=== PATIENT | female | born 1945 | race Caucasian/White ===

== ENCOUNTER → 2016-08-11 | Day surgery (SDC) | payer MEDICARE ==
[~2016-08-11] MED LIST: ALPRAZOLAM0.25 MG PO; BENTYL10 MG PO; CYMBALTA20 M1 PO; EXFORGE 5-320 M1 TAB PO; FLORASTOR250 M1 PO; GABAPENTIN300 M2 PO; HYDROCODON-ACE1 EAC5 PO; L-LYSINE1000 M1 PO; LEXAPRO PO; MOBIC15 MG PO; MULTI-DAY1 TAB PO; MULTIVITAMINS1 EAC3; NORVASC10 MG PO; PRILOSEC PO; SINGULAIR PO; SYMBICORT INH; VESICARE5 MG PO; VIT B-12 PO; VITAMIN C1000 M2 PO
--- NOTE | ~2016-08-11 | OR ---
Unit #: [id number] #: [id number] Patient: SHAUN BRIGHT [id number] [address] [address] [id number] O MR#: [id number] NAME: SHAUN BRIGHT ROOM: Date of Procedure: 08/11/2016 Admission Date: 08/11/2016 Surgeon: Soren Bender M.D. : 1945 Attending Physician: Soren Bender M.D. Primary Care Physician: Manuel Verma M.D. OPERATIVE REPORT JOB NOTE: CC: [facility]. PREOPERATIVE DIAGNOSES 1. Back pain. 2. Radiculopathy. 3. Spinal stenosis. 4. Degenerative disk disease. 5. Spondylolisthesis. POSTOPERATIVE DIAGNOSES 1. Back pain. 2. Radiculopathy. 3. Spinal stenosis. 4. Degenerative disk disease. 5. Spondylolisthesis. PROCEDURE PERFORMED Lumbar epidural steroid injection with fluoroscopic guidance for needle localization. INDICATIONS FOR PROCEDURE The patient is a 70-year-old female with previously mentioned diagnosis. She had a return of back and left greater than right lower extremity pain due to multilevel multifactorial very severe disk and spine disease. She was treated medically with p.r.n. epidural steroid injections. She will not be a surgical candidate. Epidural steroids had given a fairly good improvement. Last injection was completed 4 months ago. She will likely need them incrementally all the time. DESCRIPTION OF PROCEDURE The patient was placed in a seated position. Standard monitors were applied. Sterile prep and drape of lumbar area was performed. The skin then to the right of midline at the L4 level was localized with 1% lidocaine. An 18-gauge [employer] needle was then advanced via right paramedian approach and loss of resistance technique in toward the epidural space. After confirming proper positioning with fluoroscopy and radiographic contrast, 80 mg Depo-Medrol and 6 mL of 0.125% bupivacaine were deposited. The patient tolerated the procedure otherwise well and was discharged to the recovery room in stable condition. Dictated by... Unit #: [id number] #: [id number] Patient: SHAUN BRIGHT Soren Bender M.D. LHP/christian TD: 08/12/2016 00:39 JOB #: [id number] OPERATIVE REPORT Page 1 of 1 X Soren Bender MD X PROCEDURE OPERATIVE NOTE
== END | disposition home or self-care (01) ==
LOC: CCSC 10:58
DX: M51.16 Intervertebral disc disorders with radiculopathy, lumbar region (principal); M43.16 Spondylolisthesis, lumbar region; M48.06 Spinal stenosis, lumbar region
CPT/HCPCS: J1040; J2250

== ENCOUNTER → 2016-09-24 | Day surgery (SDC) | payer MEDICARE ==
--- NOTE | ~2016-09-24 | OR ---
Unit #: [id number] #: [id number] Patient: SHAUN BRIGHT [id number] [address] [place], [place] [address] [id number] O MR#: [id number] NAME: SHAUN BRIGHT ROOM: Date of Procedure: 09/24/2016 Admission Date: 09/24/2016 Surgeon: Soren Bender M.D. : 1945 Attending Physician: Soren Bender M.D. Referring Physician: Soren Bender M.D. Primary Care Physician: Manuel Verma M.D. OPERATIVE REPORT PREOPERATIVE DIAGNOSES 1. Back pain. 2. Radiculopathy. 3. Degenerative disk disease. 4. Lumbar spinal stenosis. 5. Spondylolisthesis. POSTOPERATIVE DIAGNOSES 1. Back pain. 2. Radiculopathy. 3. Degenerative disk disease. 4. Lumbar spinal stenosis. 5. Spondylolisthesis. PROCEDURE PERFORMED Lumbar epidural steroid injection with fluoroscopic guidance for needle localization. INDICATIONS FOR PROCEDURE The patient is a 70-year-old female with severe multilevel multifactorial degenerative disk and spine disease, it is nonsurgical in nature. She has worsened lordoscoliosis as well. The patient has been treated medically with p.r.n. epidural steroid injections which actually quite helpful, last injection was about 6 weeks ago, that was done singly due to the fact she was about to have abdominal surgery that significantly helped to settle her back and leg pain. Typically, she does best with a series of 2 injections. We are going to repeat the second injection at this point based on good partial response, pathology, symptomatology, and treatment options. DESCRIPTION OF PROCEDURE The patient was placed in a seated position. Standard monitors were applied. Sterile prep and drape of the lumbar area was performed. The skin then to the right of midline at the L4-L5 level was localized with 1% lidocaine. An 18-gauge Jinitead needle was then advanced via right paramedian approach and loss of resistance technique in toward the epidural space. The patient did not complain of pain or paresthesia during needle advancement. After confirming proper positioning with fluoroscopy and radiographic contrast, 80 mg Depo-Medrol and 6 mL of 0.125% bupivacaine were deposited. The patient tolerated the procedure otherwise well and was discharged to the recovery room in stable condition. Unit #: [id number] #: [id number] Patient: SHAUN BRIGHT Dictated by... J Luis Cutler/christian TD: 09/25/2016 06:26 JOB #: [id number] OPERATIVE REPORT Page 1 of 1 X Soren Bender MD X PROCEDURE OPERATIVE NOTE
== END | disposition home or self-care (01) ==
LOC: CCSC 08:36
DX: M51.16 Intervertebral disc disorders with radiculopathy, lumbar region (principal); M48.06 Spinal stenosis, lumbar region; M43.10 Spondylolisthesis, site unspecified
CPT/HCPCS: J1040; J2250

== ENCOUNTER → 2016-10-27 | Day surgery (SDC) | payer MEDICARE ==
--- NOTE | ~2016-10-27 | OR ---
Unit #: [id number] #: [id number] Patient: SHAUN BRIGHT [id number] [address] [place], [place] [address] [id number] O MR#: [id number] NAME: SHAUN BRIGHT ROOM: Date of Procedure: 10/27/2016 Admission Date: 10/27/2016 Surgeon: Soren Bender M.D. : 1945 Attending Physician: Soren Bneder M.D. Primary Care Physician: Manuel Verma M.D. OPERATIVE REPORT JOB NOTE: CC: [facility]. PREOPERATIVE DIAGNOSES Back pain, radiculopathy, degenerative disk disease, degenerative spine disease, spinal stenosis. POSTOPERATIVE DIAGNOSES Back pain, radiculopathy, degenerative disk disease, degenerative spine disease, spinal stenosis. PROCEDURE PERFORMED Lumbar epidural steroid injection with fluoroscopic guidance for needle localization. INDICATIONS FOR PROCEDURE The patient is a 71-year-old female with back and left greater than right lower extremity pain. She has multilevel multifactorial significant degenerative disk and spine disease. She has failed to settle with facet injections. She has been treated in the past with epidural steroid. Initially, the steroid resulted in moderately good improvement. The pain returns and plan is to repeat those injections. One was done about 5 weeks ago, did not result in as much improvement she had with last injections. She proceed with a second injection today. If this does not do better for long amount of time, we will look towards symptom complex management base and medications. DESCRIPTION OF PROCEDURE The patient was placed in a seated position. Standard monitors were applied. Sterile prep and drape of the lumbar area was performed. The skin then to the right of midline at the L2 level was localized with 1% lidocaine. An 18-gauge Calixartead needle was then advanced via right paramedian approach and loss of resistance technique in toward the epidural space. After confirming proper positioning with fluoroscopy and radiographic contrast, 80 mg of Depo-Medrol and 6 mL of 0.125% bupivacaine were deposited. The patient tolerated the procedure otherwise well and was discharged to the recovery room in stable condition. Dictated by... Soren Bender M.D. LHP/modl Unit #: [id number] #: [id number] Patient: SHAUN BRIGHT TD: 10/27/2016 11:40 JOB #: [id number] OPERATIVE REPORT Page 1 of 1 X Soren Bender MD X PROCEDURE OPERATIVE NOTE
== END | disposition home or self-care (01) ==
LOC: CCSC 09:38
DX: M51.16 Intervertebral disc disorders with radiculopathy, lumbar region (principal); M48.06 Spinal stenosis, lumbar region; Z88.1 Allergy status to other antibiotic agents; Z88.2 Allergy status to sulfonamides; Z79.891 Long term (current) use of opiate analgesic; Z79.51 Long term (current) use of inhaled steroids; Z79.899 Other long term (current) drug therapy
CPT/HCPCS: J1040; J2250